=== PATIENT | male | born 1955 | race Caucasian/White ===

== ENCOUNTER 2025-03-16 02:44 | Inpatient (IN) | payer MEDICARE, OTHER ==
[~2025-03-16] VITALS: Ht 177.8 cm; Wt 68.2 kg
[2025-03-16] MEDS ORDERED: ASPI-1450 PO (02:56)
[2025-03-16] MEDS ORDERED: ATOR40TA28 PO (02:56)
[2025-03-16 03:15] LABS: GLUCOMETER DEV NAME(LOC) ER.7; GLUCOSE,POINT OF CARE 95 MG/DL (70-110)
[2025-03-16 03:38] LABS: BASOPHILS % (AUTO) 0.9 % (0.0-2.0); EOSINOPHILS % (AUTO) 3.9 % (1.0-6.0); HEMOGLOBIN 15.4 g/dL (13.5-17.5); LYMPHOCYTES # (AUTO) 1.3 K/uL (1.0-4.8); LYMPHOCYTES % (AUTO) 29.9 % (22.0-44.0); MEAN CORPUSCULAR HEMOGLOBIN 31.3 pg (26.0-34.0); MEAN CORPUSCULAR HGB CONC 34.3 G/dL (31.0-37.0); MEAN CORPUSCULAR VOLUME 91 fL (80-100); MONOCYTES # (AUTO) 0.6 K/uL (0.1-1.0); MONOCYTES % (AUTO) 12.2 % (2.0-9.0); NEUTROPHILS # (AUTO) 2.4 K/uL (1.8-7.7); NEUTROPHILS % (AUTO) 53.1 % (40.0-70.0); PLATELET COUNT (AUTO) 207 K/uL (150-450); RED BLOOD CELL COUNT(AUTO) 4.94 MIL/uL (4.50-5.90); RED CELL DISTRIBUTION WIDTH 12.7 % (11.5-14.5); WHITE BLOOD COUNT (AUTO) 4.5 K/uL (4.5-11.0)
[2025-03-16 03:48] LABS: ANION GAP 8 mmol/L (8-16); CALCIUM, TOTAL 8.4 mg/dL (8.8-10.5); CARBON DIOXIDE 25 mmol/L (22-29); CHLORIDE 108 mmol/L (98-107); CREATININE 0.86 mg/dL (0.60-1.30); GLOMERULAR FILTR. RATE CALC > 60 mL/min (>60); GLUCOSE,RANDOM 94 mg/dL (70-110); POTASSIUM 3.6 mmol/L (3.5-5.1); SODIUM SERUM 141 mmol/L (136-145); UREA NITROGEN, BLOOD 16 mg/dL (7-18)
[2025-03-16 03:58] LABS: TROPONIN I-HIGH SENSITIVITY 7 ng/L (<76)
[2025-03-16 06:47] LABS: ALANINE AMINOTRANSFERASE 47 U/L (12-78); ALBUMIN 3.9 g/dL (3.4-5.0); ALKALINE PHOSPHATASE 84 U/L (46-116); ASPARTATE AMINOTRANSFERASE 34 U/L (15-37); BILIRUBIN,TOTAL 1.1 mg/dL (0.1-1.0); TOTAL PROTEIN, SERUM 7.2 g/dL (6.4-8.2)
[2025-03-16 07:06] LABS: ALCOHOL, BLOOD (SERUM) < 3 mg/dL (0-10)
[2025-03-16] MEDS: CLOPIDOGREL BISULFATE 75 MG TABLET PO ONE (08:29)
[2025-03-16] MEDS ORDERED: ACETAMINOPHEN 325 MG TABLET PO PRN (08:45)
[2025-03-16] MEDS ORDERED: IOHEXOL 350 MG/ML 100 ML VIAL ONE (09:16)
[2025-03-16] MEDS ORDERED: SODIUM CHLORIDE 0.9% 100 ML ONE (09:17)
[2025-03-16] MEDS: DOCUSATE SODIUM 100 MG CAPSULE PO SCH (09:42)
[2025-03-16] MEDS: ATORVASTATIN CALCIUM 40 MG TABLET PO SCH (09:42)
[2025-03-16] MEDS: FAMOTIDINE 20 MG TABLET PO SCH (09:43)
[2025-03-16] MEDS: ASPIRIN 325 MG TABLET PO ONE (09:43)
[2025-03-16 12:10] VITALS: BP 144/74; PULSE 72; RESP 17; TEMP 97.2; O2SAT 99
[2025-03-16 16:57] VITALS: BP 105/65; PULSE 57; RESP 19; TEMP 97.7; O2SAT 98
[2025-03-16] MEDS: HEPARIN SODIUM,PORCINE 5,000 UNITS/ML VIAL SQ SCH (17:22)
[2025-03-16 20:24] VITALS: BP 119/60; PULSE 66; RESP 18; TEMP 97.8; O2SAT 95
[2025-03-16 23:43] VITALS: BP 130/64; PULSE 57; RESP 17; TEMP 97.7; O2SAT 97
[2025-03-17 04:00] VITALS: BP 110/73; PULSE 56; RESP 18; TEMP 97.7; O2SAT 97
[2025-03-17 08:20] VITALS: BP 125/75; PULSE 70; RESP 19; TEMP 97.6; O2SAT 98
[2025-03-17] MEDS: CLOPIDOGREL BISULFATE 75 MG TABLET PO SCH (08:51)
[2025-03-17] MEDS: ASPIRIN 81 MG CHEWABLE TABLET PO SCH (09:00)
[2025-03-17 11:24] VITALS: BP 112/70; PULSE 71; RESP 20; TEMP 96.7; O2SAT 98
[2025-03-17] MEDS ORDERED: CLOP75TA83 PO (11:47)
[2025-03-17 14:43] VITALS: BP 118/68; PULSE 74; RESP 18; TEMP 97.6; O2SAT 99
== END 2025-03-17 16:26 | disposition home or self-care (01) | DRG 69 ==
LOC: EMS 02:52 → EDH 09:04 → 5S 10:45
PROVIDERS: ADMIT Internal Medicine; ATTEND Internal Medicine
DX: G45.9 Transient cerebral ischemic attack, unspecified (principal); E78.00 Pure hypercholesterolemia, unspecified; Z79.899 Other long term (current) drug therapy; Z86.73 Personal history of transient ischemic attack (TIA), and cerebral infarction without residual deficits
CPT/HCPCS: 70450; 70551; 74177; 80048; 80076; 82962; 83735; 84484; 85025; 85610; 85730; 93005; 93306; 97161; 97165; 97535; G0480; J1644; J7050